=== PATIENT | female | born 1985 | race American Indian/Alaskan Native ===

== ENCOUNTER 2018-06-14 17:32 | Emergency (ER) | payer SELFPAY ==
[2018-06-14 17:52] VITALS: BP 119/63
--- NOTE | 2018-06-14 18:21 | Emergency Department Report ---
Chief Complaint: Headache Stated Complaint: HEADACHE - HPI History of Present Illness: This is a 33-year-old female who presents with multiple complaints for 4 days. Patient reports headache, low back pain, with bilateral lower legs swelling and pain. Patient denies past medical history. She is a current smoker 6-8 cigarettes per day. Patient reports having headaches before in the past but nothing like this. She is currently taking Motrin and Tylenol were no improvement of symptoms. He also complains of blurry vision and dizziness with headache. Patient also complains of hematuria and dysuria for 2- 3 days. Last menstrual period 05/12/2008. Patient reports swelling to lower extremity has improved due to increased walking earlier today. Patient denies numbness or tingling, warmth, frequency or urgency, nausea or vomiting or recent injury. - ROS Review of Systems: Complaint of headache, dysuria, hematuria and bilateral lower extremities edema. - Exam Vital Signs: Vital Signs 06/14/18 17:48 Temperature 98.5 F Pulse Rate 49 L Respiratory 18 Rate Blood Pressure 119/63 O2 Sat by Pulse 100 Oximetry Physical Exam: The patient is looking well and in no acute distress. Negative CVA tenderness bilaterally. Negative lower extremity swelling. MSE screening note: Focused history and physical exam performed. Due to findings the following was ordered: I ordered CT of head, urinalysis, and urine hCG. ED Disposition for MSE Condition: Stable Referrals: PRIMARY CARE, [Primary Care Provider] - 3-5 Days
--- NOTE | 2018-06-14 19:16 | Emergency Department Report ---
ED Headache HPI - General Chief Complaint: Headache Stated Complaint: HEADACHE Time Seen by Provider: 06/14/18 19:15 - History of Present Illness Initial Comments: This is a 33-year-old female who presents with multiple complaints for 4 days. Patient reports headache, low back pain, with bilateral lower legs swelling and pain. Patient denies past medical history. She is a current smoker 6-8 cigarettes per day. Patient reports having headaches before in the past but nothing like this. She is currently taking Motrin and Tylenol were no improvement of symptoms. He also complains of blurry vision and dizziness with headache. Patient also complains of hematuria and dysuria for 2- 3 days. Last menstrual period 05/12/2008. Patient reports swelling to lower extremity has improved due to increased walking earlier today. Patient denies numbness or tingling, warmth, frequency or urgency, nausea or vomiting or recent injury. - ROS Review of Systems: Complaint of headache, dysuria, hematuria and bilateral lower extremities edema. - Exam Vital Signs: Vital Signs 06/14/18 17:48 Temperature 98.5 F Pulse Rate 49 L Respiratory 18 Rate Blood Pressure 119/63 O2 Sat by Pulse 100 Oximetry Physical Exam: The patient is looking well and in no acute distress. Negative CVA tenderness bilaterally. Negative lower extremity swelling. MSE screening note: Focused history and physical exam performed. Due to findings the following was ordered: I ordered CT of head, urinalysis, and urine hCG. ED Disposition for MSE Condition: Stable Referrals: PRIMARY CARE, [Primary Care Provider] - 3-5 Days Allergies/Adverse Reactions: Allergies cephalexin [From Keflex] Allergy (Verified 06/14/18 17:48) Rash ED Review of Systems ROS: Stated complaint: HEADACHE Other details as noted in HPI ED Past Medical Hx - Past Medical History Previous Medical History?: No - Surgical History Past Surgical History?: Yes Additional Surgical History: x 3 - Social History Smoking Status: Current Every Day Smoker Substance Use Type: Marijuana ED Physical Exam - General Limitations: No Limitations ED Course Vital Signs 06/14/18 17:48 Temperature 98.5 F Pulse Rate 49 L Respiratory 18 Rate Blood Pressure 119/63 O2 Sat by Pulse 100 Oximetry Critical care attestation.: If time is entered above; I have spent that time in minutes in the direct care of this critically ill patient, excluding procedure time. ED Disposition Condition: Stable Referrals: PRIMARY CARE, [Primary Care Provider] - 3-5 Days
== END 2018-06-14 19:56 ==
LOC: ED 17:32
DX: R51 Headache (principal); M54.5 Low back pain; M79.89 Other specified soft tissue disorders; F17.200 Nicotine dependence, unspecified, uncomplicated; R42 Dizziness and giddiness; Z88.1 Allergy status to other antibiotic agents
CPT/HCPCS: 99282